=== PATIENT | female | born 1945 | race Caucasian/White ===

== ENCOUNTER 2024-12-09 15:26 | Emergency (ER) | payer OTHER ==
[~2024-12-09] VITALS: Ht 172.7 cm; Wt 68.0 kg
[2024-12-09 15:28] VITALS: TEMP 36.6; O2SAT 97
[2024-12-09] MEDS: ONDANSETRON HCL 4MG/2ML INJ IV ONE (16:44)
[2024-12-09] MEDS: SODIUM CHLORIDE 0.9% 1,000 ML IV ONE (16:44)
[2024-12-09] MEDS: MORPHINE SULFATE 4 MG/ML INJ (FOR IV/IM USE) IV ONE (16:44)
[2024-12-09 17:01] LABS: BASOPHILS % 0.6 % (0.0-2.0); EOSINOPHILS % 1.6 % (0.0-5.0); HEMATOCRIT. 38.7 % (36.0-48.0); HEMOGLOBIN. 13.2 g/dL (12.0-16.0); LYMPHOCYTES % 18.7 % (20.0-50.0); MEAN PLATELET VOLUME 7.5 fl (7.4-10.4); MONOCYTES % 8.4 % (2.0-8.0); NEUTROPHILS % 70.7 % (40.0-76.0); PLATELET 347 x1000/uL (130-400); RED BLOOD CELL COUNT 4.58 mill/uL (4.2-5.4); RED CELL DISTRIBUTION WIDTH 13.7 % (11.6-14.6)
[2024-12-09 17:18] LABS: CREATININE 1.0 mg/dL (0.6-1.0); UREA NITROGEN BLOOD 16 mg/dL (9-23)
[2024-12-09 17:19] LABS: TROPONIN I HIGH SENSITIVITY 5 ng/L (3.0-34)
[2024-12-09 17:20] LABS: ASPARTATE AMINOTRANSFERASE 56 IU/L (<34); BILIRUBIN DIRECT < 0.1 mg/dL (<=3.0)
[2024-12-09 17:21] LABS: BILIRUBIN TOTAL 0.5 mg/dL (0.1-1.0); PROTEIN TOTAL 6.1 g/dL (6.0-8.3)
[2024-12-09] MEDS ORDERED: IBUP-2028 MT (20:07)
[2024-12-09] MEDS ORDERED: METH-653 MT (20:07)
[2024-12-09] MEDS ORDERED: HYDR-4001 MT (20:07)
[2024-12-09] MEDS ORDERED: LIDO-53 TP (20:07)
[2024-12-09] MEDS ORDERED: IOHEXOL-300 100 ML BOTTLE ONE (20:13)
[2024-12-09] MEDS: KETOROLAC 30MG/ML VIAL IV ONE (20:29)
[2024-12-09 20:40] VITALS: BP 160/93; PULSE 88; RESP 13; O2SAT 99
== END 2024-12-09 20:50 | disposition home or self-care (01) ==
LOC: ER 15:26
DX: S22.31XA Fracture of one rib, right side, initial encounter for closed fracture (principal); R42 Dizziness and giddiness; R06.02 Shortness of breath; Z88.2 Allergy status to sulfonamides; Z79.899 Other long term (current) drug therapy; V89.2XXA Person injured in unspecified motor-vehicle accident, traffic, initial encounter; Y93.89 Activity, other specified; Y92.89 Other specified places as the place of occurrence of the external cause; Y99.8 Other external cause status
CPT/HCPCS: 99285; 70450; 96374; 96375; 96361; 80076; 80048; 83880; 83690; 85025; 84484; 36415; 71260; 72125; 74177; 93005; J1885; Q9967; J2405; J2270; J7030